=== PATIENT | male | born 1995 | race Two or more races ===

== ENCOUNTER 2023-11-19 10:20 | Emergency (ER) | payer OTHER ==
[2023-11-19 10:34] VITALS: BP 125/65; PULSE 69; RESP 18; TEMP 98.9; BMI 28.1
[2023-11-19] MEDS ORDERED: KETOROLAC TROMETHAMINE 30 MG/1 ML VIAL IM ONE (11:19)
[2023-11-19] MEDS ORDERED: ACETAMINOPHEN 500 MG TABLET (FP) PO ONE (11:19)
[2023-11-19] MEDS ORDERED: KETOROLAC TROMETHAMINE 30 MG/1 ML VIAL ONE (12:14)
[2023-11-19] MEDS ORDERED: ACETAMINOPHEN 500 MG TABLET (FP) ONE (12:14)
[2023-11-19] MEDS ORDERED: IBUPROFEN 600 MG TABLET (FP) PO ONE ×2 (12:20→12:25)
[2023-11-19] MEDS ORDERED: oxyCODONE HCL 5 MG TABLET PO ONE (12:59)
[2023-11-19] MEDS ORDERED: oxyCODONE HCL 5 MG TABLET ONE (13:16)
== END 2023-11-19 14:33 | disposition home or self-care (01) ==
LOC: JERFT 10:20 → JER 10:20 → JERFT 14:33
PROC: 2W3RX1Z Immobilization of Left Lower Leg using Splint (ICD-10-PCS; principal; 2023-11-19)
DX: M25.572 Pain in left ankle and joints of left foot (principal); S82.62XA Displaced fracture of lateral malleolus of left fibula, initial encounter for closed fracture; M89.9 Disorder of bone, unspecified; W01.0XXA Fall on same level from slipping, tripping and stumbling without subsequent striking against object, initial encounter; X50.0XXA Overexertion from strenuous movement or load, initial encounter; Y93.89 Activity, other specified
CPT/HCPCS: 73564-TC-LT-FY; 73590-TC-LT-FY; 73610-TC-LT-FY; 73630-TC-LT; 99283-25